=== PATIENT | female | born 1940 | race Caucasian/White ===

== ENCOUNTER 2017-08-25 15:08 | Outpatient (CLI) | payer OTHER, MEDICARE ==
[~2017-08-25 15:08] MED LIST: [UNRECOGNIZED DRUG - REMARK]
== END 2017-08-25 20:46 | disposition home or self-care (01) ==
LOC: SRD 15:08
PROVIDERS: ATTEND Dermatology
DX: C44.02 Squamous cell carcinoma of skin of lip (principal); Z87.891 Personal history of nicotine dependence
CPT/HCPCS: 71020-TC

== ENCOUNTER 2023-09-20 05:58 | Inpatient (IN) | payer OTHER, MEDICARE ==
[~2023-09-20] VITALS: Ht 167.6 cm; Wt 68.0 kg
[2023-09-20 06:02] VITALS: BP_SYST 160; PULSE 73; RESP 18; TEMP 97; O2SAT 96
[2023-09-20 06:33] LABS: BASOPHILS # (AUTO) 0.1 K/uL (0.0-0.2); BASOPHILS % (AUTO) 0.9 % (0.0-2.0); EOSINOPHILS # (AUTO) 0.2 K/uL (0.0-0.4); EOSINOPHILS % (AUTO) 2.5 % (0.0-4.0); HEMATOCRIT 37.1 % (36-48); HEMOGLOBIN 12.2 g/dL (12.0-16.0); LYMPHOCYTES # (AUTO) 1.5 K/uL (1.0-5.5); LYMPHOCYTES % (AUTO) 18.1 % (20.5-51.5); MEAN CORPUSCULAR HEMOGLOBIN 32 pg (27-31); MEAN CORPUSCULAR HGB CONC 33 % (32-36); MEAN CORPUSCULAR VOLUME 97 fL (79.0-98.0); MONOCYTES # (AUTO) 0.8 K/uL (0.0-1.0); MONOCYTES % (AUTO) 10.5 % (1.7-9.3); NEUTROPHILS # (AUTO) 5.5 K/uL (1.8-7.7); PLATELET COUNT (AUTO) 206 K/uL (130-430); RED BLOOD CELL COUNT(AUTO) 3.84 MIL/uL (4.2-6.2); RED CELL DISTRIBUTION WIDTH 13.9 % (9.0-15.0)
[2023-09-20 06:38] LABS: ANION GAP 7 (5-15); CALCIUM 8.8 mg/dL (8.4-11.0); CARBON DIOXIDE 29 mmol/L (23-29); CHLORIDE 96 mmol/L (98-107); CREATININE 1.05 mg/dL (0.55-1.30); GLUCOSE 96 mg/dL (74-106); POTASSIUM 4.3 mmol/L (3.5-5.1); SODIUM SERUM 132 mmol/L (136-145); UREA NITROGEN, BLOOD 20 mg/dL (8-21)
[2023-09-20 06:45] LABS: ALANINE AMINOTRANSFERASE 22 U/L (12-78); ALBUMIN 3.5 g/dL (3.4-4.8); ASPARTATE AMINOTRANSFERASE 22 U/L (10-37); TOTAL BILIRUBIN 0.5 mg/dL (0.0-1.0); TOTAL PROTEIN, SERUM 6.6 g/dL (6.4-8.3)
[2023-09-20] MEDS ORDERED: fentaNYL CITRATE/PF 100 MCG/2 ML AMP IVP ONE (07:00)
[2023-09-20 07:10] LABS: BILIRUBIN,URINE NEGATIVE (NEGATIVE); BLOOD, URINE TRACE (NEGATIVE); CLARITY/URINE CLEAR (CLEAR); COLOR,URINE YELLOW (YELLOW); GLUCOSE,URINE NEGATIVE (NEGATIVE); KETONES,URINE NEGATIVE (NEGATIVE); LEUKOCYTE ESTERASE ,URINE NEGATIVE (NEGATIVE); NITRITE, URINE NEGATIVE (NEGATIVE); PROTEIN URINE NEGATIVE (NEGATIVE); UROBILINOGEN,URINE 0.2 (0.2-1.0)
[2023-09-20 07:14] LABS: BACTERIA,URINE None Seen /HPF (None Seen); CALCIUM OXALATE CRYSTALS,UR None Seen /HPF (None Seen); CALCIUM PHOSPHATE CRYSTALS,UR None Seen /HPF (None Seen); COARSE GRANULAR CASTS,URINE None Seen /LPF (None Seen); FINE GRANULAR CASTS,URINE None Seen /LPF (None Seen); HYALINE CASTS, URINE None Seen /LPF (None Seen); MUCUS,URINE None Seen /LPF (None Seen); OTHER CASTS, URINE None Seen /LPF (None Seen); OTHER CRYSTALS,URINE None Seen /HPF (None Seen); TRICHOMONAS,URINE None Seen /HPF (None Seen); TRIPLE PHOSPHATE CRYSTAL,UR None Seen /HPF (None Seen); URIC ACID CRYSTALS,URINE None Seen /HPF (None Seen); URINE AMORPHOUS PHOSPHATES None Seen /HPF (None Seen); URINE AMORPHOUS URATE None Seen /HPF (None Seen); WAXY CASTS,URINE None Seen /LPF (None Seen); WBC,URINE 0-3 /HPF (0-3); YEAST,URINE None Seen /HPF (None Seen)
[2023-09-20] MEDS ORDERED: MORPHINE 2 MG/ML INJ. SYRINGE IVP PRN (07:30)
[2023-09-20] MEDS ORDERED: CITA20TA16 PO (07:45)
[2023-09-20] MEDS ORDERED: TOLT4CAP PO (07:45)
[2023-09-20] MEDS ORDERED: [UNRECOGNIZED DRUG - CODE] PO (07:45)
[2023-09-20] MEDS ORDERED: [UNRECOGNIZED DRUG - CODE] PO (07:45)
[2023-09-20] MEDS ORDERED: ALLEGRA PO (07:45)
[2023-09-20] MEDS ORDERED: ONDA4TAB5 PO (07:45)
[2023-09-20] MEDS ORDERED: GABA-331 PO (07:45)
[2023-09-20] MEDS ORDERED: AMOX500T2 PO (07:45)
[2023-09-20] MEDS ORDERED: LOSA100T24 PO (07:45)
[2023-09-20] MEDS ORDERED: COR12.5 PO (07:45)
[2023-09-20] MEDS ORDERED: TRAZADONE PO (07:45)
[2023-09-20] MEDS ORDERED: TRAM50TA2 PO (07:50)
[2023-09-20] MEDS: D5NS 1,000 ML IV SCH ×2 (08:53→23:00)
[2023-09-20] MEDS ORDERED: POTASSIUM CHLORIDE 20 MEQ TABLET.ER PO PRN (09:00)
[2023-09-20] MEDS ORDERED: MAGNESIUM SULFATE 50 ML IV PRN (09:00)
[2023-09-20] MEDS ORDERED: ONDANSETRON HCL 4 MG/2 ML VIAL IVP PRN (09:00)
[2023-09-20] MEDS ORDERED: ZOLPIDEM TARTRATE 5 MG TABLET PO PRN (09:00)
[2023-09-20] MEDS ORDERED: TOLTERODINE TARTRATE ER 2 MG CAP.ER.24H PO SCH (09:00)
[2023-09-20] MEDS ORDERED: NALOXONE HCL 0.4 MG/ML AMP (NARCAN) IVP PRN ×3 (09:00→15:45)
[2023-09-20] MEDS ORDERED: DOCUSATE SODIUM 100 MG CAPSULE PO PRN (09:00)
[2023-09-20] MEDS ORDERED: MUPIROCIN 2% TOPICAL OINTMENT 22 GM NS PRN (09:00)
[2023-09-20] MEDS ORDERED: CARVEDILOL 6.25 MG TABLET (COREG) ONE (10:12)
[2023-09-20] MEDS ORDERED: ACETAMINOPHEN 500 MG TABLET PO PRN ×3 (10:15)
[2023-09-20] MEDS ORDERED: CARVEDILOL 12.5 MG TABLET (COREG) PO ONE (10:15)
[2023-09-20] MEDS ORDERED: LOSARTAN POTASSIUM 50 MG TABLET (COZAAR) PO ONE (10:30)
[2023-09-20] MEDS ORDERED: GABAPENTIN 300 MG CAPSULE PO ONE (10:30)
[2023-09-20] MEDS: MORPHINE 2 MG/ML INJ. SYRINGE IVP PRN ×2 (12:24→17:01)
[2023-09-20] MEDS: oxyBUTYnin chloride 5 MG TABLET PO SCH ×2 (15:23→21:07)
[2023-09-20] MEDS: HYDROcodone/ACETAMIN 5-325 MG TAB (NORCO/ VICODIN) PO PRN (15:45)
[2023-09-20] MEDS ORDERED: COLC0.6T67 PO (17:29)
[2023-09-20] MEDS ORDERED: LORazepam 2 MG/ML VIAL ONE (19:57)
[2023-09-20] MEDS: LORazepam 2 MG/ML VIAL IVP PRN (19:59)
[2023-09-20] MEDS ORDERED: TRAZODONE 25 MG PO SCH (21:00)
[2023-09-20] MEDS ORDERED: ESTRADIOL PO SCH (21:00)
[2023-09-20] MEDS ORDERED: ESTRADIOL TD SCH (21:00)
[2023-09-20] MEDS: CARVEDILOL 12.5 MG TABLET (COREG) PO SCH (21:01)
[2023-09-20] MEDS: LOSARTAN POTASSIUM 50 MG TABLET (COZAAR) PO SCH (21:04)
[2023-09-20] MEDS: traZODone HCL 50 MG TABLET (DESYREL) PO SCH (21:06)
[2023-09-20] MEDS: GABAPENTIN 300 MG CAPSULE PO SCH (21:09)
[2023-09-20] MEDS: COLCRYS PO SCH (21:33)
[2023-09-20] MEDS: PROGESTERONE 100 MG PO SCH (21:34)
[2023-09-20] MEDS: ceFAZolin SODIUM 2 GM in D5W 100 ML IV SCH (21:38)
[2023-09-21] VITALS (7 sets, daily range): BP systolic 123–153; PULSE 70–89; RESP 16–20; TEMP 97.8–99.5; O2SAT 93–97
[2023-09-21] MEDS: HYDROcodone/ACETAMIN 5-325 MG TAB (NORCO/ VICODIN) PO PRN (02:02)
[2023-09-21 05:02] LABS: BASOPHILS % (AUTO) 0.3 % (0.0-2.0); EOSINOPHILS % (AUTO) 0.3 % (0.0-4.0); HEMATOCRIT 32.2 % (36-48); HEMOGLOBIN 10.8 g/dL (12.0-16.0); LYMPHOCYTES # (AUTO) 1.1 K/uL (1.0-5.5); LYMPHOCYTES % (AUTO) 15.8 % (20.5-51.5); MEAN CORPUSCULAR HEMOGLOBIN 32 pg (27-31); MEAN CORPUSCULAR HGB CONC 34 % (32-36); MEAN CORPUSCULAR VOLUME 96 fL (79.0-98.0); MONOCYTES # (AUTO) 1.1 K/uL (0.0-1.0); NEUTROPHILS # (AUTO) 4.8 K/uL (1.8-7.7); NEUTROPHILS % (AUTO) 67.6 % (40.0-70.0); PLATELET COUNT (AUTO) 168 K/uL (130-430); RED BLOOD CELL COUNT(AUTO) 3.34 MIL/uL (4.2-6.2); RED CELL DISTRIBUTION WIDTH 13.8 % (9.0-15.0); WHITE BLOOD COUNT (AUTO) 7.2 K/uL (4.8-10.8)
[2023-09-21 05:22] LABS: ANION GAP 7 (5-15); CALCIUM 8.8 mg/dL (8.4-11.0); CARBON DIOXIDE 27 mmol/L (23-29); CHLORIDE 95 mmol/L (98-107); CREATININE 0.64 mg/dL (0.55-1.30); GLUCOSE 126 mg/dL (74-106); POTASSIUM 3.4 mmol/L (3.5-5.1); SODIUM SERUM 129 mmol/L (136-145); UREA NITROGEN, BLOOD 12 mg/dL (8-21)
[2023-09-21] MEDS: ceFAZolin SODIUM 2 GM in D5W 100 ML IV SCH (06:57)
[2023-09-21] MEDS ORDERED: HYDR-3917 PO (09:34)
[2023-09-21] MEDS ORDERED: CEPH250C PO (09:34)
[2023-09-21] MEDS: MORPHINE 2 MG/ML INJ. SYRINGE IVP PRN ×2 (10:27→20:42)
[2023-09-21] MEDS: COLCRYS PO SCH ×2 (10:28→20:41)
[2023-09-21] MEDS: CITALOPRAM HYDROBROMIDE 20 MG TABLET PO SCH (10:28)
[2023-09-21] MEDS: GABAPENTIN 300 MG CAPSULE PO SCH ×2 (10:28→20:40)
[2023-09-21] MEDS: CARVEDILOL 12.5 MG TABLET (COREG) PO SCH ×2 (10:29→20:40)
[2023-09-21] MEDS: oxyBUTYnin chloride 5 MG TABLET PO SCH ×3 (10:29→20:40)
[2023-09-21] MEDS: LOSARTAN POTASSIUM 50 MG TABLET (COZAAR) PO SCH ×2 (10:30→20:40)
[2023-09-21] MEDS: PIPERACILLIN/TAZO 3.375/DEX-IS 50 ML IV SCH ×3 (12:27→22:47)
[2023-09-21] MEDS: D5NS 1,000 ML IV SCH (16:42)
[2023-09-21] MEDS: traZODone HCL 50 MG TABLET (DESYREL) PO SCH (20:40)
[2023-09-21] MEDS: PROGESTERONE 100 MG PO SCH (20:41)
[2023-09-21] MEDS: LORazepam 2 MG/ML VIAL IVP PRN (22:40)
[2023-09-22 02:25] VITALS: BP_SYST 138; PULSE 60; RESP 17; TEMP 97.8; O2SAT 94
[2023-09-22] MEDS: D5NS 1,000 ML IV SCH ×2 (03:24→11:28)
[2023-09-22] MEDS: PIPERACILLIN/TAZO 3.375/DEX-IS 50 ML IV SCH ×4 (05:03→23:24)
[2023-09-22 05:31] LABS: BASOPHILS % (AUTO) 0.5 % (0.0-2.0); EOSINOPHILS # (AUTO) 0.1 K/uL (0.0-0.4); EOSINOPHILS % (AUTO) 1.8 % (0.0-4.0); HEMATOCRIT 32.9 % (36-48); HEMOGLOBIN 11.1 g/dL (12.0-16.0); LYMPHOCYTES # (AUTO) 0.9 K/uL (1.0-5.5); LYMPHOCYTES % (AUTO) 14.5 % (20.5-51.5); MEAN CORPUSCULAR HEMOGLOBIN 32 pg (27-31); MEAN CORPUSCULAR HGB CONC 34 % (32-36); MEAN CORPUSCULAR VOLUME 96 fL (79.0-98.0); MONOCYTES % (AUTO) 15.7 % (1.7-9.3); NEUTROPHILS # (AUTO) 4.2 K/uL (1.8-7.7); NEUTROPHILS % (AUTO) 67.5 % (40.0-70.0); PLATELET COUNT (AUTO) 162 K/uL (130-430); RED BLOOD CELL COUNT(AUTO) 3.44 MIL/uL (4.2-6.2); RED CELL DISTRIBUTION WIDTH 13.6 % (9.0-15.0); WHITE BLOOD COUNT (AUTO) 6.3 K/uL (4.8-10.8)
[2023-09-22 05:51] LABS: ANION GAP 8 (5-15); CALCIUM 8.5 mg/dL (8.4-11.0); CARBON DIOXIDE 27 mmol/L (23-29); CHLORIDE 100 mmol/L (98-107); CREATININE 0.63 mg/dL (0.55-1.30); GLUCOSE 107 mg/dL (74-106); POTASSIUM 3.6 mmol/L (3.5-5.1); SODIUM SERUM 135 mmol/L (136-145); UREA NITROGEN, BLOOD 8 mg/dL (8-21)
[2023-09-22 08:00] VITALS: BP_SYST 149; PULSE 71; RESP 17; TEMP 97.2; O2SAT 99
[2023-09-22] MEDS: GABAPENTIN 300 MG CAPSULE PO SCH ×2 (09:03→20:48)
[2023-09-22] MEDS: LOSARTAN POTASSIUM 50 MG TABLET (COZAAR) PO SCH ×2 (09:03→20:49)
[2023-09-22] MEDS: CARVEDILOL 12.5 MG TABLET (COREG) PO SCH ×2 (09:04→20:49)
[2023-09-22] MEDS: oxyBUTYnin chloride 5 MG TABLET PO SCH ×3 (09:04→20:48)
[2023-09-22] MEDS: CITALOPRAM HYDROBROMIDE 20 MG TABLET PO SCH (09:04)
[2023-09-22] MEDS: COLCRYS PO SCH ×2 (09:15→20:50)
[2023-09-22 11:30] VITALS: PULSE 67; O2SAT 99
[2023-09-22 11:36] VITALS: BP_SYST 149; PULSE 67; RESP 16; TEMP 97.8; O2SAT 96
[2023-09-22 15:27] VITALS: BP_SYST 118; PULSE 74; RESP 16; TEMP 96.7; O2SAT 96
[2023-09-22] MEDS ORDERED: ASCORBIC ACID 500 MG TABLET PO ONE (16:15)
[2023-09-22 20:00] VITALS: BP_SYST 110; PULSE 79; RESP 18; TEMP 98.4; O2SAT 94
[2023-09-22] MEDS: PROGESTERONE 100 MG PO SCH (20:50)
[2023-09-22] MEDS: traZODone HCL 50 MG TABLET (DESYREL) PO SCH (20:50)
[2023-09-22] MEDS ORDERED: guaiFENesin/DEXTROMETHORPHAN 10 ML UDC PO PRN (23:15)
[2023-09-23 00:41] VITALS: BP_SYST 111; PULSE 66; RESP 17; TEMP 98.4; O2SAT 93
[2023-09-23] MEDS: HYDROcodone/ACETAMIN 5-325 MG TAB (NORCO/ VICODIN) PO PRN ×2 (01:47→10:49)
[2023-09-23 05:04] LABS: BASOPHILS % (AUTO) 0.7 % (0.0-2.0); EOSINOPHILS # (AUTO) 0.2 K/uL (0.0-0.4); EOSINOPHILS % (AUTO) 3.6 % (0.0-4.0); HEMATOCRIT 30.5 % (36-48); HEMOGLOBIN 10.3 g/dL (12.0-16.0); LYMPHOCYTES # (AUTO) 1.3 K/uL (1.0-5.5); LYMPHOCYTES % (AUTO) 23.2 % (20.5-51.5); MEAN CORPUSCULAR HEMOGLOBIN 33 pg (27-31); MEAN CORPUSCULAR HGB CONC 34 % (32-36); MEAN CORPUSCULAR VOLUME 96 fL (79.0-98.0); MONOCYTES # (AUTO) 0.9 K/uL (0.0-1.0); MONOCYTES % (AUTO) 15.2 % (1.7-9.3); NEUTROPHILS # (AUTO) 3.3 K/uL (1.8-7.7); NEUTROPHILS % (AUTO) 57.3 % (40.0-70.0); PLATELET COUNT (AUTO) 170 K/uL (130-430); RED BLOOD CELL COUNT(AUTO) 3.16 MIL/uL (4.2-6.2); RED CELL DISTRIBUTION WIDTH 13.8 % (9.0-15.0); WHITE BLOOD COUNT (AUTO) 5.8 K/uL (4.8-10.8)
[2023-09-23] MEDS: PIPERACILLIN/TAZO 3.375/DEX-IS 50 ML IV SCH (05:11)
[2023-09-23 05:24] LABS: ANION GAP 9 (5-15); CALCIUM 8.8 mg/dL (8.4-11.0); CARBON DIOXIDE 26 mmol/L (23-29); CHLORIDE 98 mmol/L (98-107); CREATININE 0.68 mg/dL (0.55-1.30); GLUCOSE 107 mg/dL (74-106); POTASSIUM 3.5 mmol/L (3.5-5.1); SODIUM SERUM 133 mmol/L (136-145); UREA NITROGEN, BLOOD 13 mg/dL (8-21)
[2023-09-23 08:00] VITALS: BP_SYST 128; PULSE 78; RESP 18; TEMP 99; O2SAT 96; O2SAT 98
[2023-09-23] MEDS: D5NS 1,000 ML IV SCH (08:00)
[2023-09-23] MEDS: oxyBUTYnin chloride 5 MG TABLET PO SCH (10:08)
[2023-09-23] MEDS: LOSARTAN POTASSIUM 50 MG TABLET (COZAAR) PO SCH (10:08)
[2023-09-23] MEDS: GABAPENTIN 300 MG CAPSULE PO SCH (10:08)
[2023-09-23] MEDS: COLCRYS PO SCH (10:09)
[2023-09-23] MEDS: CARVEDILOL 12.5 MG TABLET (COREG) PO SCH (10:09)
[2023-09-23] MEDS: CITALOPRAM HYDROBROMIDE 20 MG TABLET PO SCH (10:09)
[2023-09-23 12:00] VITALS: BP_SYST 122; PULSE 76; RESP 20; TEMP 98.2; O2SAT 98
[2023-09-23 14:53] VITALS: BP_SYST 125; PULSE 79; RESP 18; TEMP 98.3; O2SAT 95
== END 2023-09-23 15:15 | disposition home health service (06) | DRG 563 ==
LOC: SED 05:58 → SMU 07:21
PROVIDERS: ADMIT General Practice; ATTEND General Practice
PROC: 2W3DX1Z Immobilization of Left Lower Arm using Splint (ICD-10-PCS; principal; 2023-09-23)
DX: S52.572A Other intraarticular fracture of lower end of left radius, initial encounter for closed fracture (principal); E87.1 Hypo-osmolality and hyponatremia; I42.9 Cardiomyopathy, unspecified; I10 Essential (primary) hypertension; I25.10 Atherosclerotic heart disease of native coronary artery without angina pectoris; Z66 Do not resuscitate; F32.A Depression, unspecified; N32.81 Overactive bladder; G62.9 Polyneuropathy, unspecified; K30 Functional dyspepsia; I34.9 Nonrheumatic mitral valve disorder, unspecified; W17.89XA Other fall from one level to another, initial encounter; Y93.89 Activity, other specified; Z88.5 Allergy status to narcotic agent; Y99.8 Other external cause status; Y92.009 Unspecified place in unspecified non-institutional (private) residence as the place of occurrence of the external cause; Z79.891 Long term (current) use of opiate analgesic; Z79.899 Other long term (current) drug therapy; Z79.1 Long term (current) use of non-steroidal anti-inflammatories (NSAID)
CPT/HCPCS: 36415; 70450-TC; 71045; 73090; 76376; 80048; 80053; 81000; 81001; 81015; 83037; 83735; 83880; 84484; 85025; 85651-TC; 87040; 93005; 93306; 94760; 96374; 96375; 97110-GP; 97112-GP; 97116-GP; 97530-GP; 99285; J0696; J2060; J2270; J2405; J2543; J3010; J7060

== ENCOUNTER 2023-09-24 09:12 | Emergency (ER) | payer OTHER, MEDICARE ==
[~2023-09-24] VITALS: Ht 167.6 cm; Wt 68.0 kg
[~2023-09-24 09:12] MED LIST changes: +ALLEGRA PO; +CEPH250C PO; +CITA20TA16 PO; +COLC0.6T67 PO; +COR12.5 PO; +GABA-331 PO; +HYDR-3917 PO; +LOSA100T24 PO; +ONDA4TAB5 PO; +TOLT4CAP PO; +TRAM50TA2 PO; +TRAZADONE PO; +[UNRECOGNIZED DRUG - CODE] PO; +[UNRECOGNIZED DRUG - CODE] PO
[2023-09-24 09:25] VITALS: BP_SYST 140; PULSE 64; RESP 18; TEMP 97.5; O2SAT 96
[2023-09-24 09:57] LABS: BASOPHILS % (AUTO) 0.8 % (0.0-2.0); EOSINOPHILS # (AUTO) 0.1 K/uL (0.0-0.4); EOSINOPHILS % (AUTO) 2.3 % (0.0-4.0); HEMATOCRIT 33.9 % (36-48); HEMOGLOBIN 11.5 g/dL (12.0-16.0); LYMPHOCYTES # (AUTO) 0.5 K/uL (1.0-5.5); LYMPHOCYTES % (AUTO) 9.4 % (20.5-51.5); MEAN CORPUSCULAR HEMOGLOBIN 33 pg (27-31); MEAN CORPUSCULAR HGB CONC 34 % (32-36); MEAN CORPUSCULAR VOLUME 96 fL (79.0-98.0); MONOCYTES # (AUTO) 0.6 K/uL (0.0-1.0); NEUTROPHILS # (AUTO) 4.4 K/uL (1.8-7.7); NEUTROPHILS % (AUTO) 77.5 % (40.0-70.0); PLATELET COUNT (AUTO) 216 K/uL (130-430); RED BLOOD CELL COUNT(AUTO) 3.53 MIL/uL (4.2-6.2); RED CELL DISTRIBUTION WIDTH 13.4 % (9.0-15.0); WHITE BLOOD COUNT (AUTO) 5.7 K/uL (4.8-10.8)
[2023-09-24 10:29] LABS: ANION GAP 8 (5-15); CALCIUM 8.6 mg/dL (8.4-11.0); CARBON DIOXIDE 28 mmol/L (23-29); CHLORIDE 94 mmol/L (98-107); CREATININE 0.59 mg/dL (0.55-1.30); GLUCOSE 107 mg/dL (74-106); POTASSIUM 3.7 mmol/L (3.5-5.1); SODIUM SERUM 130 mmol/L (136-145); UREA NITROGEN, BLOOD 12 mg/dL (8-21)
[2023-09-24] MEDS ORDERED: SODIUM PHOSPHATE,MONO-DIBASIC 133 ML ENEMA RC ONE (10:30)
[2023-09-24 10:36] LABS: ALANINE AMINOTRANSFERASE 20 U/L (12-78); ALBUMIN 2.7 g/dL (3.4-4.8); ASPARTATE AMINOTRANSFERASE 20 U/L (10-37); BILIRUBIN,DIRECT 0.2 mg/dL (0.0-0.3); TOTAL BILIRUBIN 0.7 mg/dL (0.0-1.0)
[2023-09-24] MEDS ORDERED: NACL 0.9% 1,000 ML IV ONE (10:45)
[2023-09-24 11:15] LABS: BILIRUBIN,URINE NEGATIVE (NEGATIVE); CLARITY/URINE CLEAR (CLEAR); COLOR,URINE YELLOW (YELLOW); GLUCOSE,URINE NEGATIVE (NEGATIVE); KETONES,URINE NEGATIVE (NEGATIVE); LEUKOCYTE ESTERASE ,URINE NEGATIVE (NEGATIVE); NITRITE, URINE NEGATIVE (NEGATIVE); PROTEIN URINE NEGATIVE (NEGATIVE)
[2023-09-24 11:18] LABS: BLOOD, URINE TRACE (NEGATIVE)
[2023-09-24 11:37] LABS: BACTERIA,URINE FEW /HPF (None Seen); RBC,URINE 0-3 /HPF (0-3); WBC,URINE 0-3 /HPF (0-3)
[2023-09-24] MEDS ORDERED: KETOROLAC TROMETHAMINE 30 MG VIAL IVP ONE (12:00)
[2023-09-24 13:24] VITALS: BP_SYST 138; PULSE 68; RESP 18; TEMP 97.5; O2SAT 96
== END 2023-09-24 18:55 ==
LOC: SED 09:12
DX: K56.41 Fecal impaction (principal); R53.1 Weakness; E87.1 Hypo-osmolality and hyponatremia; Z88.5 Allergy status to narcotic agent; Z79.899 Other long term (current) drug therapy
CPT/HCPCS: 99285; 71045; 80076; 80048; 81000; 81001; 83880; 85025; 84484; 36415; 93005; 74018; 81015; J1885